=== PATIENT | female | born 1935 | race Caucasian/White ===

== ENCOUNTER → 2016-09-10 | Outpatient (CLI) | payer OTHER ==
[~2016-09-10] MED LIST: DITROPAN PO; ESTRACE PO; FISH OIL 1,0001 CAP PO; FLAX SEED OIL1000 MG PO; GLUCOSAMINE PO; MULTI-VITAMIN1 TAB PO; OYSTER CALCIUM500 MG PO; SYNTHROID PO; VIT B-12 PO
--- NOTE | ~2016-09-10 | US24 ---
[facility] A Service of [facility] RADIOLOGY TEXT RESULTS PATIENT: ROBERT RIDER LOCATION: [facility] : 33 UNIT #: [id number] AGE: [address]: KELLEE SINGH APRN SEX: F ORDER DR: [id number] [facility] [address] [place], [place] [address] [id number] O MR#: [id number] Acc #: [id number] NAME: ROBERT RIDER : 1935 SEX: F STUDY DATE/TIME: 09/10/2016 13:31 UNIT: [facility] ROOM: STUDY DESCRIPTION: US Breast Unilateral Attending Physician: Kellee Barrientos M.D. Ordering Physician: Staff Doctor Not On Primary Care Physician: Kellee Barrientos M.D. MEDICAL IMAGING REPORT This report is preliminary unless electronic signature is present EXAM Targeted ultrasound, right breast. DATE OF EXAM 09/10/2016 INDICATIONS 81-year-old female complaining of a palpable abnormality at 5 o'clock in the right breast. History of breast implant placement. Lump present for 2-3 years. Implants placed over 40 years ago. TECHNIQUE Targeted ultrasound of the area of palpable concern in the right breast at 5 o'clock was performed. Correlation is made with a distant mammogram performed 03/31/2009. COMPARISON No comparison ultrasounds. FINDINGS RIGHT BREAST: The patient was initially scanned independently by the technologist and then rescanned in my presence. Limited physical exam (with patient consent) was performed and demonstrates a probable calcified implant capsule on the right, and also on the left, concordant with prior mammography images. There is no additional palpable abnormality in the patient's area of concern on my exam at 5 o'clock. Targeted ultrasound of the area of palpable concern demonstrates calcifications related to the capsule on the right and a right breast implant, but no cystic or solid mass or persistent shadowing abnormality in the overlying soft tissue. Imaging findings are concordant with physical exam. Clinical considerations should determine additional imaging at this time. The patient was counseled that annual screening mammography would be [facility] A Service of [facility] RADIOLOGY TEXT RESULTS PATIENT: ROBERT RIDER [id number] : [birth year] UNIT #: [id number] AGE: [address]: KELLEE SINGH APRN SEX: F ORDER DR: recommended and that mammography in conjunction with ultrasound is recommended for assessment of palpable masses. The patient has declined mammography here today. She was encouraged to reconsider mammographic evaluation to allow for complete imaging evaluation of the breasts bilaterally. IMPRESSION 1. Ultrasound demonstrates no correlate for the area of patient palpable concern at 5 o'clock on the right. There is a calcified breast implant. The ultrasound is otherwise negative. 2. The patient has declined additional evaluation with mammography. Mammography is recommended for this patient for complete evaluation of both breasts as described above. Patients over the age of 40 are entered into a reminder system with target due date for the next mammogram. A result letter will also be sent to the patient. BIRADS: 2 Benign findings. Dictated by... Henrry Larson M.D. THIS IS AN ELECTRONICALLY VERIFIED REPORT Henrry Larson M.D. at 09/10/2016 5:24 PM Elvis TD: 09/10/2016 16:13 JOB #: [id number] MEDICAL IMAGING REPORT Page 1 of 1 COPY
== END | disposition home or self-care (01) ==
LOC: CWCC 12:41
DX: N63 Unspecified lump in breast (principal); Z98.82 Breast implant status
CPT/HCPCS: 76641